=== PATIENT | female | born 1985 | race American Indian/Alaskan Native ===

== ENCOUNTER 2016-11-29 13:34 | Emergency (ER) | payer SELFPAY ==
[2016-11-29] MEDS ORDERED: KEPPRA 1,000 MG/NS 0.75% 100ML 1,000 MG/100 ML BAG IV ONE ×2 (14:32→14:43)
--- NOTE | 2016-11-29 15:15 | Emergency Department Report ---
HPI - General Chief Complaint: Seizure Time Seen by Provider: 11/29/16 14:41 - HPI HPI: Room 4 Patient is a 31-year-old female presenting with a chief complaint of seizure. Patient has a history of seizures and states she's been compliant with her Keppra. Patient states her Keppra was recently increased to 1500 mg in the morning and 1000 mg evening. The patient was at work washing a generalized tonic-clonic seizure. Patient now complains of feeling weak and tired as she does after having seizures Location: [facility] [facility] Duration: Unknown Quality: [see above] Severity: Unknown Modifying factors: [see above] Context: [see above] Mode of transportation: [not driving] ED Past Medical Hx - Past Medical History Previous Medical History?: Yes Hx Seizures: Yes - Surgical History Past Surgical History?: Yes Additional Surgical History: c section - Family History Family history: no significant - Social History Smoking Status: Never Smoker Substance Use Type: None (denies illicit drug use), Alcohol (occasional) ED Review of Systems ROS: Stated complaint: SEIZURE Other details as noted in HPI Comment: All other systems reviewed and negative Constitutional: malaise. denies: chills, fever Eyes: denies: eye pain, eye discharge, vision change ENT: denies: ear pain, throat pain Respiratory: denies: cough, shortness of breath, wheezing Cardiovascular: denies: chest pain, palpitations Endocrine: no symptoms reported Gastrointestinal: denies: abdominal pain, nausea, diarrhea Genitourinary: denies: urgency, dysuria, discharge Musculoskeletal: denies: back pain, joint swelling, arthralgia Skin: denies: rash, lesions Neurological: other (seizure) Psychiatric: denies: anxiety, depression Hematological/Lymphatic: denies: easy bleeding, easy bruising Physical Exam - Physical Exam Vital Signs: Vital Signs 11/29/16 13:52 Temperature 98.3 F Pulse Rate 99 H Respiratory 18 Rate Blood Pressure 138/90 O2 Sat by Pulse 100 Oximetry Physical Exam: GENERAL: The patient is well-developed well-nourished female lying on stretcher not appearing to be in acute distress. [] HEENT: Normocephalic. Atraumatic. Extraocular motions are intact. Patient has moist mucous membranes. Mild abrasion to the left lateral tongue NECK: Supple. Trachea midline CHEST/LUNGS: Clear to auscultation. There is no respiratory distress noted. HEART/CARDIOVASCULAR: Regular. There is no tachycardia. There is no gallop rub or murmur. ABDOMEN: Abdomen is soft, nontender. Patient has normal bowel sounds. There is no abdominal distention. SKIN: There is no rash. There is no edema. There is no diaphoresis. NEURO: The patient is awake, alert, and oriented. The patient is cooperative. The patient has no focal neurologic deficits. The patient has normal speech. Cranial nerves II through XII grossly intact front desk admin equal. MUSCULOSKELETAL: There is no evidence of acute injury. ED Course Vital Signs 11/29/16 13:52 Temperature 98.3 F Pulse Rate 99 H Respiratory 18 Rate Blood Pressure 138/90 O2 Sat by Pulse 100 Oximetry ED Medical Decision Making - Lab Data Result diagrams: 11/29/16 14:55 11/29/16 14:55 Laboratory Tests 11/29/16 11/29/16 11/29/16 14:55 14:55 14:55 WBC 8.0 RBC 4.26 Hgb 12.1 Hct 36.3 MCV 85 MCH 28 MCHC 33 RDW 13.9 Plt Count 231 Lymph % (Auto) 21.3 Pierce % (Auto) 5.7 Eos % (Auto) 0.8 Baso % (Auto) 0.4 Lymph # 1.7 Pierce # 0.5 Eos # 0.1 Baso # 0.0 Seg Neutrophils % 71.8 H Seg Neutrophils # 5.8 Sodium 137 Potassium 3.7 Chloride 100.1 Carbon Dioxide 24 Anion Gap 17 BUN 13 Creatinine 0.5 L Estimated GFR > 60 BUN/Creatinine Ratio 26.00 Glucose 89 Calcium 9.0 Magnesium 2.00 HCG, Qual Negative - Differential Diagnosis epilepsy Critical care attestation.: If time is entered above; I have spent that time in minutes in the direct care of this critically ill patient, excluding procedure time. ED Disposition Clinical Impression: Seizure Disposition: DC-01 TO HOME OR SELFCARE Is pt being admited?: No Does the pt Need Aspirin: No Condition: Stable Instructions: Epilepsy (ED) Additional Instructions: Return to the emergency department immediately should you develop worsening symptoms, fever, inability to tolerate food or liquid or any other concerns. Referrals: PRIMARY CARE, [Primary Care Provider] - 3-[address] Green, your neurologist [Other] - 3-5 Days Time of Disposition: 15:52
[2016-11-29 15:16] LABS: Basophils % (Auto) 0.4 % (0.0-1.8); Eosinophils % (Auto) 0.8 % (0.0-4.3); Hematocrit 36.3 % (30.3-42.9); Hemoglobin 12.1 gm/dl (10.1-14.3); Mean Corpuscular HGB Conc 33 % (30-34); Mean Corpuscular Hemoglobin 28 pg (28-32); Mean Corpuscular Volume 85 fl (79-97); Platelet Count 231 K/mm3 (140-440); Red Blood Count 4.26 M/mm3 (3.65-5.03); Red Cell Distribution Width 13.9 % (13.2-15.2)
[2016-11-29 15:32] LABS: Anion Gap 17 mmol/L; Blood Urea Nitrogen 13 mg/dL (7-17); Carbon Dioxide 24 mmol/L (22-30); Chloride 100.1 mmol/L (98-107); Glucose 89 mg/dL (65-100); Potassium 3.7 mmol/L (3.6-5.0); Sodium 137 mmol/L (137-145)
[2016-11-29 16:20] VITALS: BP 128/78
== END 2016-11-29 16:23 | disposition home or self-care (01) ==
LOC: ED 13:34
DX: R56.9 Unspecified convulsions (principal)
CPT/HCPCS: 36415; 80048; 83735; 84703; 85025; 96365; 99283; J1953

== ENCOUNTER 2016-12-12 10:31 | Emergency (ER) | payer OTHER ==
[2016-12-12] MEDS ORDERED: KEPPRA 1,000 MG/NS 0.75% 100ML 1,000 MG/100 ML BAG IV ONE (11:13)
--- NOTE | 2016-12-12 11:19 | Emergency Department Report ---
HPI - General Chief Complaint: Seizure Time Seen by Provider: 12/12/16 11:12 - HPI HPI: This is a 31-year-old AA female presents to the emergency department via EMS from work with complaint of a seizure that happened just prior to presentation. The patient doesn't history of seizures and has started to happen more recently. It last happened about 2 weeks ago and she came to [facility] for evaluation. She is on 1500 mg of Keppra twice daily. She does not have a primary care physician but does have a neurologist, Dr. Green. She says that she was feeling kind of weak and was leaving work early to go home and had a seizure as she was trying to leave. It was witnessed but unknown how long she was unconscious. She currently is awake and alert and says that she feels much better but slightly weak. She denies any vision change, slurred speech, chest pain, shortness of breath or fever. She denies any other past medical history. She did not receive anything taken anything for her symptoms prior to presentation. ED Past Medical Hx - Past Medical History Hx Seizures: Yes - Surgical History Additional Surgical History: c section - Social History Smoking Status: Never Smoker ED Review of Systems ROS: Stated complaint: SEIZURE Other details as noted in HPI Comment: All other systems reviewed and negative Constitutional: weakness. denies: chills, fever Eyes: denies: eye pain, eye discharge, vision change ENT: denies: ear pain, throat pain Respiratory: denies: cough, shortness of breath, wheezing Cardiovascular: denies: chest pain, palpitations Gastrointestinal: denies: abdominal pain, nausea, diarrhea Genitourinary: denies: urgency, dysuria, discharge Musculoskeletal: denies: back pain, joint swelling, arthralgia Skin: denies: rash, lesions Neurological: other (seizure). denies: headache, weakness, paresthesias Physical Exam - Physical Exam Vital Signs: Vital Signs 12/12/16 12/12/16 10:38 10:48 Temperature 98.0 F Pulse Rate 93 H Respiratory 14 Rate Blood Pressure 140/94 O2 Sat by Pulse 100 Oximetry Physical Exam: GENERAL: The patient is well-developed well-nourished. ENT: Normocephalic. Atraumatic. Patient has moist mucous membranes. EYES: Extraocular motions are intact. Pupils equal reactive to light bilaterally. No nystagmus. NECK: Supple. Trachea is mid line. CHEST/LUNGS: Clear to auscultation. There is no respiratory distress noted. HEART/CARDIOVASCULAR: Regular rhythm. Regular rate. There is no gallop rub or murmur. ABDOMEN: Abdomen is soft, nontender. Patient has normal bowel sounds. There is no abdominal distention. SKIN: Skin is warm and dry. NEURO: The patient is awake, alert, and oriented. The patient is cooperative. The patient has no sensory or motor deficits. The patient has normal speech. Cranial nerves II through XII grossly intact. No dysmetria. No pronator drift. MUSCULOSKELETAL: There is no tenderness or deformity. There is no limitation range of motion. There is no evidence of acute injury. ED Course Vital Signs 12/12/16 12/12/16 10:38 10:48 Temperature 98.0 F Pulse Rate 93 H Respiratory 14 Rate Blood Pressure 140/94 O2 Sat by Pulse 100 Oximetry ED Medical Decision Making - Lab Data Result diagrams: 12/12/16 11:17 12/12/16 11:17 - Radiology Data Radiology results: report reviewed CT of the head does not show any acute bleed, shift, mass, ischemia or skull fracture. - Medical Decision Making 31-year-old female presents to the emergency department after having a seizure at work just prior to presentation. This is the second seizure in the past 2 weeks although she does have a history of seizures in the past. She is already on 1500 mg of Keppra twice daily but was given a loading dose here as well. CT of the head does not show any acute bleed, shift, mass or any other acute process. Labs are unremarkable and do not show any etiology of her symptoms. She was reevaluated multiple times over multiple hours and has not had any further seizure-like activity. She was seen and the toy in the emergency department and appears stable. No focal, motor or sensory deficits in her cranial nerves are intact. She has an appointment coming up with her neurologist. She appears safe for discharge home at this time but will return to the ER with any worsening of her symptoms or any acute distress. - Differential Diagnosis epilepsy, substance abuse, hypoglycemia Critical Care Time: No Critical care attestation.: If time is entered above; I have spent that time in minutes in the direct care of this critically ill patient, excluding procedure time. ED Disposition Clinical Impression: Seizure Disposition: DC-01 TO HOME OR SELFCARE Is pt being admited?: No Condition: Stable Instructions: Epilepsy (ED), Recurrent Seizures Adult (ED) Additional Instructions: Please follow-up with your neurologist in the next day or so. Return to the emergency department with any further seizure-like activity. Referrals: PRIMARY CARE, [Primary Care Provider] - [facility] Time of Disposition: 14:02
[2016-12-12 11:37] LABS: Basophils % (Auto) 0.3 % (0.0-1.8); Hematocrit 37.8 % (30.3-42.9); Hemoglobin 12.1 gm/dl (10.1-14.3); Mean Corpuscular HGB Conc 32 % (30-34); Mean Corpuscular Hemoglobin 28 pg (28-32); Mean Corpuscular Volume 87 fl (79-97); Platelet Count 204 K/mm3 (140-440); Red Blood Count 4.37 M/mm3 (3.65-5.03); Red Cell Distribution Width 14.1 % (13.2-15.2); White Blood Count 7.5 K/mm3 (4.5-11.0)
[2016-12-12 11:55] LABS: Alanine Aminotransferase 16 units/L (7-56); Albumin 4.1 g/dL (3.9-5); Albumin/Globulin Ratio 1.1 %; Alkaline Phosphatase 54 units/L (35-129); Anion Gap 18 mmol/L; Blood Urea Nitrogen 9 mg/dL (7-17); Calcium 8.6 mg/dL (8.4-10.2); Carbon Dioxide 22 mmol/L (22-30); Chloride 100.7 mmol/L (98-107); Creatine Kinase 122 units/L (30-135); Glucose 97 mg/dL (65-100); Potassium 4.1 mmol/L (3.6-5.0); Sodium 137 mmol/L (137-145); Total Protein 7.7 g/dL (6.3-8.2)
[2016-12-12 13:01] LABS: Urine Drugs of Abuse Note Disclamer
--- NOTE | 2016-12-12 13:06 | Cat Scan Report ---
CT HEAD WITHOUT CONTRAST: HISTORY: Seizure. Serial contiguous axial images were obtained through the cranium. Intravenous contrast material was not administered. The ventricles are normal in size and appearance. There is no mass effect or midline shift. No areas of abnormally increased or decreased attenuation are seen. No mass lesion is seen. The mastoid air cells and visualized portions of the sinuses are normal. IMPRESSION: Cranial CT scan within normal limits.
[2016-12-12 13:12] LABS: Bilirubin,Urine NEG (Negative); Blood,Urine NEG (Negative); Ketones,Urine NEG (Negative); Leukocyte Esterase,Urine NEG (Negative); Nitrite,Urine NEG (Negative); Protein,Urine <15 mg/dL mg/dL (Negative); RBC,Urine < 1.0 /HPF (0.0-6.0); Urobilinogen,Urine < 2.0 mg/dL (<2.0); WBC,Urine < 1.0 /HPF (0.0-6.0)
[2016-12-12 14:08] VITALS: BP 111/68
== END 2016-12-12 14:15 | disposition home or self-care (01) ==
LOC: ED 10:31
DX: R56.9 Unspecified convulsions (principal)
CPT/HCPCS: 36415; 70450; 80053; 80307; 81001; 82550; 84443; 84484; 84703; 85025; 93005; 93010; 96374; 99285; G0480; J1953; 80320